=== PATIENT | male | born 1980 | race Caucasian/White ===

== ENCOUNTER 2022-01-10 09:03 | Outpatient (CLI) | payer MEDICAID, SELFPAY ==
--- NOTE | 2022-01-10 09:00 | DI.RAD_ITS ---
Exam(s) XR SHOULDER RT COMPLETE 2+V EXAM: XR SHOULDER RT COMPLETE 2+V CLINICAL HISTORY: right shoulder pain. TECHNIQUE: 2D digital imaging was performed. COMPARISON: No exams were available for comparison FINDINGS: Two views No evidence of fracture or dislocation. No obvious degenerative changes in the glenohumeral and AC j oints. There is a small calcific density measuring 2 millimeters just above the greater tuberosity, consistent with probable calcific rotator cuff tendinitis. IMPRESSION: DATA REPOSITORY: RADIATION DOSE DELIVERED:
== END 2022-01-10 09:04 | disposition home or self-care (01) ==
LOC: DIORS 09:04
PROVIDERS: PCP Family Medicine; Visit Provider Student in an Organized Health Care Education/Training Program
DX: M25.511 Pain in right shoulder (principal); M75.31 Calcific tendinitis of right shoulder
CPT/HCPCS: 73030

== ENCOUNTER 2022-11-15 14:19 | Outpatient (REF) | payer MEDICAID, SELFPAY ==
[2022-11-15 14:38] LABS: Abs Immature Grans 0.01 10^3/uL (0.0-0.06); Absolute Basophil Count 0.02 10^3/uL (0.0-0.2); Absolute Eosinophil Count 0.06 10^3/uL (0.0-0.7); Absolute Lymphocyte Count 1.85 10^3/uL (1.2-3.4); Absolute Monocyte Count 0.34 10^3/uL (0.1-0.8); Absolute Neutrophil Count 3.07 10^3/uL (1.2-6.7); Basophils % 0.4; Eosinophils % 1.1; HCT 46.5 % (40.0-50.0); HGB 15.9 g/dL (13.5-17.5); Immature Grans % 0.2; Lymphocytes % 34.6; MCH 28.3 pg (27.0-33.0); MCHC 34.2 % (32.0-36.0); MCV 83 fL (80-95); MPV 10.2 fL (8.0-11.0); Monocytes % 6.4; Neutrophils % 57.3; Platelet Count 283 10^3/uL (130-400); RBC 5.62 10^6/uL (4.36-5.78); RDW 11.9 % (11.8-14.1); WBC 5.35 10^3/uL (4.4-10.8)
[2022-11-15 15:08] LABS: ALT 22 U/L (16-63); AST 12 U/L (15-37); Albumin 3.8 g/dL (3.4-5.0); Alkaline Phosphatase 97 U/L (46-116); Anion Gap 8.9 mmol/L (3-11); BUN 18 mg/dL (7-18); Bilirubin, Total 0.4 mg/dL (0.2-1.0); CO2 25.1 mmol/L (21.0-32.0); CREATININE 0.8 mg/dL (0.70-1.30); Calcium 9.2 mg/dL (8.5-10.1); Chloride 100 mmol/L (98-107); Estimated GFR 114.02 (mL/min/1.73m2); Glucose 274 mg/dL (74-106); Potassium 3.6 mmol/L (3.5-5.1); Sodium 134 mmol/L (136-145); Total Protein 7.4 g/dL (6.4-8.2)
[2022-11-15 15:34] LABS: Calculated LDL 213 mg/dL (<100); Cholesterol 327 mg/dL (<200); Ferritin 171 ng/mL (26-388); HDL Cholesterol 50 mg/dL (40-60); Triglyceride 323 mg/dL (<150)
== END 2022-11-15 14:20 | disposition home or self-care (01) ==
LOC: LBN 14:19
PROVIDERS: PCP Family Medicine; Visit Provider Surgery
DX: E10.319 Type 1 diabetes mellitus with unspecified diabetic retinopathy without macular edema (principal); E78.5 Hyperlipidemia, unspecified; I48.91 Unspecified atrial fibrillation; K21.9 Gastro-esophageal reflux disease without esophagitis; K44.9 Diaphragmatic hernia without obstruction or gangrene; R00.2 Palpitations
CPT/HCPCS: 80053; 80061; 82728; 85025